=== PATIENT | female | born 1960 | race Caucasian/White ===

== ENCOUNTER 2022-03-28 14:06 | Outpatient (CLI) | payer OTHER, SELFPAY ==
--- NOTE | ~2022-03-28 | US_ITS ---
EXAMINATION: US transvaginal DATE: 03/28/2022 14:59 INDICATION: Evaluate pelvis. Status post left oophorectomy. Comparison:No prior studies for comparison. TECHNIQUE: Multiple endovaginal sonographic images of the pelvis performed. FINDINGS: The uterus measures 4.9 x 1.5 x 4.2 cm. The endometrial complex measures 1 mm. The ovaries are not visualized. There is no free fluid in the pelvis. There are no abnormal masses s een on either side. IMPRESSION: 1. Unremarkable pelvic ultrasound. Reviewed, dictated and finalized at location B.
== END 2022-03-28 14:07 | disposition home or self-care (01) ==
PROVIDERS: PCP Family Medicine; Visit Provider Physician Assistant Medical
DX: N94.89 Other specified conditions associated with female genital organs and menstrual cycle (principal); Z87.42 Personal history of other diseases of the female genital tract
CPT/HCPCS: 76830

== ENCOUNTER → 2022-04-10 13:54 | Outpatient (CLI) | payer OTHER, SELFPAY ==
--- NOTE | ~2022-04-10 | CT_ITS ---
EXAMINATION: CT abdomen pelvis wo con DATE: 04/10/2022 14:26 INDICATION: Right lower quadrant abdominal pain. TECHNIQUE: Computed tomography (CT) of the abdomen and pelvis was performed without intravenous contr ast. Automated exposure control and iterative reconstruction technique were employed. The dose-length product was 484.83 mGy-cm. COMPARISON: None. FINDINGS: The visualized portions of the lung bases demonstrate minimal atelectasis on the left. No p leural effusion. The heart size is normal. No pericardial effusion. The liver, gallbladder, spleen, p ancreas, and adrenal glands are normal. There is a 10.7 cm mass of right kidney measuring soft tissue attenuation with areas of coarse calcification. There is mild right hydronephrosis. There is a 5 mm stone in left kidney. There are no dilated loops of bowel. The appendix is normal. There are no patho logically enlarged lymph nodes. There is no free intraperitoneal fluid. There is severe lower lumbar spondylosis. There is a chronic compression fracture of T11. IMPRESSION: 1. 10.7 cm mass of right kidney, which may be a hemorrhagic cyst or neoplasm. Abdomen MRI without and with contrast is recommended given the patient's history of CT contrast reaction. 2. Mild right hydronephrosis secondary to mass effect from the right kidney mass. 3. Nonobstructing left kidney stone. Reviewed, dictated and finalized at location A. IMPRESSION: 1. 10.7 cm mass of right kidney, which may be a hemorrhagic cyst or neoplasm. A bdomen MRI without and with contrast is recommended given the patient's history of CT contrast reaction. 2. Mild right hydronephrosis secondary to mass effect from the right kidney mas s. 3. Nonobstructing left kidney stone.
== END ==
PROVIDERS: PCP Family Medicine; Visit Provider Nurse Practitioner Family
DX: G89.29 Other chronic pain (principal); R10.31 Right lower quadrant pain; R19.03 Right lower quadrant abdominal swelling, mass and lump; N20.0 Calculus of kidney
CPT/HCPCS: 74176

== ENCOUNTER 2024-02-23 07:49 | Outpatient (CLI) | payer OTHER, SELFPAY ==
--- NOTE | ~2024-02-23 | MR_ITS ---
MRI of the left foot CLINICAL HISTORY: Third metatarsal stress fracture TECHNIQUE: Axial proton-density and proton-density fat-sat images, coronal redundancy fat-sat and T1- weighted images, and sagittal T1-weighted and T2 fat-sat images were performed. FINDINGS: There is mild marrow edema at the midshaft of the third metatarsal, without discrete fractu re line. There may be minimal periosteal thickening in this region. There are chondroid lesions withi n the first metatarsal and first proximal phalanx, suggestive of enchondromas. No other marrow signal abnormality seen. Joint spaces are preserved. No joint effusion identified. Flexor and extensor tendons are intact. Intrinsic musculature of the foot is intact. No intermetatars al bursitis or Chen's neuroma. No soft tissue mass evident. IMPRESSION: Findings consistent with stress response marrow edema of the third metatarsal shaft, without discrete stress fracture line or cortical break. Enchondromas of the first metatarsal and first proximal phalanx. Reviewed, dictated and finalized at location . IMPRESSION: Findings consistent with stress response marrow edema of the third metatarsal s haft, without discrete stress fracture line or cortical break. Enchondromas of the first metatarsal and first proximal phalanx.
== END 2024-02-23 07:50 ==
PROVIDERS: PCP Family Medicine; Visit Provider Podiatrist Foot & Ankle Surgery
DX: S92.309A Fracture of unspecified metatarsal bone(s), unspecified foot, initial encounter for closed fracture (principal); D16.32 Benign neoplasm of short bones of left lower limb
CPT/HCPCS: 73718

== ENCOUNTER 2025-01-11 16:04 | Outpatient (CLI) | payer OTHER, SELFPAY ==
--- NOTE | ~2025-01-11 | XR_ITS ---
EXAM: XR shoulder LT min 2V DATE: 01/11/2025 16:30 HISTORY: M54.2 - Cervicalgia . COMPARISON: None available. FINDINGS: Decreased mineralization. No fracture or dislocation. No lytic or blastic lesion. Mild deg enerative change at the AC joint and glenohumeral joint. No erosion or periosteal change. Soft tissue s within normal limits. IMPRESSION: Osteopenia. Mild left shoulder polyarticular osteoarthritis. Reviewed, dictated and finalized at location K.
--- NOTE | ~2025-01-11 | XR_ITS ---
EXAM: XR cervical spine 4-5V DATE: 01/11/2025 16:30 HISTORY: M54.2 - Cervicalgia . COMPARISON: X-ray and CT cervical spine 04/24/2017. FINDINGS: Craniocervical association and atlantoaxial joint are aligned. Severe degenerative change at the atlantodental interval. No prevertebral soft tissue swelling. 2 mm retrolistheses at C4-5 and C5-6. Vertebral body heights are maintained. Normal disc spaces. Mild disc space narrowing and margin al osteophytosis at C4-5 and C5-6. Mild-moderate multilevel facet and uncovertebral joint hypertrophy . Moderate right neural foraminal narrowing at C4-5. Moderate bilateral neural foraminal narrowing at C5-6. IMPRESSION: Severe degenerative change at the atlantodental interval. Created 1 retrolistheses at C4- 5 and C5-6. Moderate degenerative disease at C4-5 and C5-6. Multilevel facet arthropathy. Moderate ri ght C4-5 and moderate bilateral C5-6 neural foraminal narrowing. Reviewed, dictated and finalized at location K. IMPRESSION: Severe degenerative change at the atlantodental interval. Created 1 retrolistheses at C4-5 and C5-6. Moderate degenerative disease at C4-5 and C5- 6. Multilevel facet arthropathy. Moderate right C4-5 and moderate bilateral C5- 6 neural foraminal narrowing.
== END 2025-01-11 16:05 | disposition home or self-care (01) ==
LOC: MICIMG 16:05
PROVIDERS: PCP Family Medicine; Visit Provider Physician Assistant Medical
DX: M47.892 Other spondylosis, cervical region (principal); M19.012 Primary osteoarthritis, left shoulder; M85.88 Other specified disorders of bone density and structure, other site
CPT/HCPCS: 72050; 73030

== ENCOUNTER 2025-02-21 12:54 | Outpatient (CLI) | payer OTHER, SELFPAY ==
--- NOTE | ~2025-02-21 | MR_ITS ---
EXAMINATION: MR cervical spine wo con DATE: 02/23/2025 11:11 CDT INDICATION: M47.12. Spondylosis with myelopathy. Renal cell carcinoma. Left- sided neck pain which radiates into the left shoulder. No trauma. TECHNIQUE: Magnetic resonance imaging (MRI) of the cervical spine was performed without intravenous contrast. Sequences included sagittal T2-weighted FRFSE-XL, sagittal T2-weighted FS FRFSE-XL, sagittal T1-weighted FSE-XL, and axial T2- weighted 3D FRFSE-XL. COMPARISON: None FINDINGS: Cervical vertebral body heights are within normal limits. Disc desiccation throughout the cervical spine. Predental space is within normal limits. Grade 1 retrolisthesis of C5 on C6. Mild intervertebral disc space narrowing at the C5- C6 level. No abnormal signal within the spinal cord. Cervical medullary junction is within normal limits. Bone marrow signal is within normal limits. At the C3-C4 level, there is a small broad-based disc bulge. Mild narrowing of the spinal canal and mild narrowing of the bilateral neural foramen. At the C4-C5 level, there is a small broad-based disc bulge with degenerative change in the facet joints and uncovertebral joints. Mild narrowing of the spinal canal and mild narrowing of the bilateral neural foramen. At the C5-6 level, there is a small posterior disc osteophyte complex with degenerative change in the facet joints. Mild narrowing of the spinal canal. Moderate narrowing of the bilateral neural foramen. IMPRESSION: 1. Multilevel discogenic and degenerative change in the mid cervical spine most prominent at the C5-C6 level as detailed above. 2. Grade 1 retrolisthesis of C5 and C6. Reviewed, dictated and finalized at location Q.
== END 2025-02-21 12:55 | disposition home or self-care (01) ==
PROVIDERS: PCP Family Medicine; Visit Provider Physician Assistant Medical
DX: M47.12 Other spondylosis with myelopathy, cervical region (principal); M47.22 Other spondylosis with radiculopathy, cervical region; M50.30 Other cervical disc degeneration, unspecified cervical region
CPT/HCPCS: 72141

== ENCOUNTER 2025-03-10 10:41 | Outpatient (CLI) | payer OTHER, SELFPAY ==
--- NOTE | 2025-03-10 11:00 | ECG_ITS ---
Test Date: 2025-03-10 11:07:07 Measurements Intervals [place] Rate: 66 P: 62 SC: 171 QRS: 2 QRSD: 94 T: 46 QT: 394 QTc: 415 Interpretive Statements SINUS RHYTHM POSSIBLE LEFT ATRIAL ENLARGEMENT [-0.1mV P-WAVE IN V1/V2] No previous ECG available for comparison Electronically Signed On 03-10-2025 15:40:56 CDT by Octavio Mensah M.D.
--- OUTSIDE RECORDS SUMMARY | 2025-03-10 11:28 | XMS_ITS | Encounter Summary ---
Author Organization [facility] - [facility] Address [address] [place] [address] Care Team Providers Care Direct Support Staff Member Name Role Phone Rachid Kirby MD Primary Care Provider [phone] Encounter Details Date Type Department Care Team (Late st Contact Info) Description 05/29/2023 Feast [facility] Patient Accounts [address] [place], [place] [id number] [facility] Provider Action Required Social History Tobacco Use Types Packs/Day Years Used Date Smoking Tobacco: Never Smokeless Tobacco: Never Alcohol Use Standard Drinks/Week Comments Not Currently 0 (1 standard drink = 0.6 oz pur e alcohol) Comments No Sex and Gender Information Value Date Recorded Sex Assigned at Not on file Legal Sex Female 7:30 PM CDT Gender Identity Not on file Sexual Orientation Not on file documented as of this encounter Functional Status * RETIRED Are you deaf or do you have serious difficulty hearing Answer Date of Assessment Author Status No 05/04/2022 12:35 AM CDT Acti ve * RETIRED Are you blind or do you have serious difficulty seeing, even when wearing glasses? Answer Date of Assessment Author Status No 05/04/2022 12:35 AM CDT Acti ve * Do you have serious difficulty walking or climbing stairs? Answer Date of Assessment Author Status No 05/04/2022 12:35 AM JANT Cathy Ramirez RN Active * Do you have difficulty dressing or bathing? Answer Date of Assessment Author Status No 05/04/2022 12:35 AM JANT Cathy Ramirez RN Active * Because of a physical, mental, or emotional condition, do you have difficulty doing errands alone such as visiting a doctor's office or shopping? Answer Date of Assessment Author Status No 05/04/2022 12:35 AM Cathy Coleman RN Active documented as of this encounter Mental Status * Because of a physical, mental, or emotional condition, do you have serious difficulty concentrating, remembering, or making decisions? Answer Entry Date Author Status No 05/04/2022 12:35 AM Cathy Coleman RN Active documented in this encounter Plan of Treatment Not on file documented as of this encounter Goals Goal Patient Goal Type Associated Problems Recent Progress Patient-Stated? Author Patient will return to prior living situation and remain independent in ADLs upon discharge from hospital Lifestyle No Aaliyah Cabrera, TIRE FIXER documented as of this encounter Visit Diagnoses Not on filedocumented in this encounter Care Teams Direct Support Staff Member Relationship Specialty Start Date End Date Rachid Kirby MD [address] [place], [place] [id number] PCP - General FAMILY PRACTICE 05/02/22 documented as of this encounter
--- OUTSIDE RECORDS SUMMARY | 2025-03-10 11:28 | XMS_ITS | Encounter Summary ---
Author Organization [employer] Address 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 [place] [id number] PCP - General Family Practice 12/19/16 documented as of this encounter
--- OUTSIDE RECORDS SUMMARY | 2025-03-10 11:28 | XMS_ITS | Clinical Summary ---
Author Organization [facility] Address [facility] [place] [address] Care Team Providers Care Chart Reader Name Role Phone Rachid Kirby MD Primary Care Provider [phone] Allergies Active Allergy Reactions Criticality Noted Date Comments Iodine Hives,Swelling 05/02/2022 Swelling to hands Medications folic acid (FOLVITE) 1 MG tablet Take 1 mg by mouth nightly. 2 Active Multiple Vitamin (MULTI-VITAMIN) tablet Take 1 tablet by mouth nightly. Active ondansetron (ZOFRAN-ODT) 8 MG disintegrating tablet DISSOLVE 1 TABLET ON THE TONGUE EVERY 8 HOURS NEEDED FOR NAUSEA 2 Active PARoxetine CR (PAXIL-CR) 25 MG 24 hr tablet Take 25 mg by mouth nightly. 2 Active rosuvastatin (CRESTOR) 10 MG tablet Take 10 mg by mouth nightly. 2 Active SUMAtriptan (IMITREX) 100 MG tablet Take 100 mg by mouth 2 (two) times daily as needed for Migraine. 2 Active aspirin EC (ECOTRIN) 81 MG tablet Take 81 mg by mouth nightly. Active vitamin D3, cholecalciferol, 5000 UNITS capsule Take 5,000 Units by mouth nightly. Active oxyCODONE-acetamino phen (PERCOCET) 7.5-325 MG tabletIndications:A cute Pain < 7 Day Supply Take 1 tablet by mouth every 4 (four) hours as needed. Indications: Acute Pain < 7 Day Supply 20 tablet 2 Active Active Problems Problem Noted Date Diagnosed Date Kidney stone 05/03/2022 Social History Tobacco Use Types Packs/Day Years Used Date Smoking Tobacco: Never Smokeless Tobacco: Never Alcohol Use Standard Drinks/Week Comments Not Currently 0 (1 standard drink = 0.6 oz pur e alcohol) Comments No Sex and Gender Information Value Date Recorded Sex Assigned at Not on file Legal Sex Female 7:30 PM CDT Gender Identity Not on file Sexual Orientation Not on file Last Filed Vital Signs Vital Sign Reading Time Taken Comments Blood Pressure 139/72 05/06/2022 5:02 AM ARTS THERAPIST Pulse 81 05/06/2022 5:02 AM ARTS THERAPIST Temperature 36.6 C (97.9 F) 05/06/2022 5:02 AM ARTS THERAPIST Respiratory Rate 16 05/06/2022 5:02 AM ARTS THERAPIST Oxygen Saturation 98% 05/06/2022 5:02 AM ARTS THERAPIST Inhaled Oxygen Concentration - - Weight 71.3 kg (157 lb 3 oz) 05/05/2022 4:50 AM ARTS THERAPIST Height 162.6 cm (5' 4) 05/03/2022 9:05 PM CDT Body Mass Index 26.98 05/03/2022 9:05 PM CDT Plan of Treatment Health Maintenance Due Date Last Done Comments Cervical Cancer Screening Pa p Smear (Age 30 to 64) Every 3 Years 1961 Colorectal Cancer Screening Colonoscopy (10 Years) 1961 Annual Physical 1964 Hepatitis C 08/31/1979 DTaP, Tdap and Td Vaccines ( 1 - Tdap) 1980 Cervical Cancer Screening Pa p with HPV Testing (Age 30 to 64) Every 5 Years 08/31/1991 Cervical Cancer Screening [facility] HPV 08/31/1991 Mammogram Screening 2001 Pneumococcal Vaccine: 50+ Years (1 of 1 - PCV) 08/31/2011 Zoster Vaccines (1 of 2) 08/31/2011 COVID-19 Vaccine (3 - 2024-2 6 season) 2025 03/11/2021, 02/18/2021 RSV Immunization or 60+ Years (1 - 1-dose 75+ series) 2036 Meningococcal B Vaccine Aged Out No l onger eligible based on patient's age to complete this topic Meningococcal Vaccine Aged Out No yvonne yue eligible based on patient's age to complete this topic RSV Immunizations Under 20 Months Aged Out No longer eligible b ased on patient's age to complete this topic Goals Goal Patient Goal Type Associated Problems Recent Progress Patient-Stated? Author Patient will return to prior living situation and remain independent in ADLs upon discharge from hospital Lifestyle No Aaliyah Cabrera, [facility] Insurance [facility] Advance Directives * Full Code (Latest Code Status on File) Date Activated Date Inactivated Comments 05/04/2022 12:49 AM 05/06/2022 2:40 PM Care Teams Chart Reader Relationship Specialty Start Date End Date Rachid Kirby MD [address] [place] [address] PCP - General FAMILY PRACTICE 05/02/22
--- OUTSIDE RECORDS SUMMARY | 2025-03-10 11:28 | XMS_ITS | Encounter Summary ---
Author Organization [employer] Address 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 [address] PCP - General Family Practice 12/19/16 documented as of this encounter
--- OUTSIDE RECORDS SUMMARY | 2025-03-10 11:28 | XMS_ITS | Patient Health Record ---
Author Organization [facility] Address [address] [place], [place] [id number] Care Team Providers Care Exchange Administrator Name Role Phone BlaineESTER reeves Unavailable Reason For Referral No Information Plan Of Treatment No Information Insurance Providers Payer Name Payer Address Payer Phone Subscriber Number Group Number Insured Name Patient Relationship to Insured Coverage Start Date Coverage End Date [facility] [address] [address] [place] [id number] TAMERA HERR Spouse - patient is the spouse of the insured
--- OUTSIDE RECORDS SUMMARY | 2025-03-10 11:28 | XMS_ITS | Encounter Summary ---
Author Organization [email or web address] Address 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 [phone] PCP - General Family Practice 12/19/16 documented as of this encounter
--- OUTSIDE RECORDS SUMMARY | 2025-03-10 11:28 | XMS_ITS | Clinical Summary ---
Author Organization [facility] Address [address] [place] [address] Care Team Providers Care Windrower Operator Name Role Phone Yesi Khan MD Primary Care Provider [phone] Source Comments [facility],non-owned Affiliates and Associated Physician Practices is amultiple site organization consisting of ambulatory clinics and hospital sitesin [place], [place], [place] and [place]. This disclosure is being madepursuant to the Care Everywhere program and may not contain all information available regarding this patient. Last updated 18.[facility] Allergies Active Allergy Reactions Criticality Noted Date Comments Codeine Nausea 10/23/2010 Contrast-Iodinated Agents For Ct/Other Rash 10/23/2010 Family History Medical History Relation Name Comments Alcohol abuse Brother Alcohol abuse Father Anxiety Disorder Mother Arthritis - Rheumatoid Mother Glaucoma Mother Hearing Loss Mother Osteoporosis Mother Anxiety Disorder Sister Relation Name Status Comments Brother Father Mother Sister Social History Tobacco Use Types Packs/Day Years Used Date Smoking Tobacco: Former Cigarettes Q uit: 10/23/1990 Smokeless Tobacco: Never Alcohol Use Standard Drinks/Week Comments No 0 (1 standard drink = 0.6 oz pur e alcohol) Comments Unknown Sex and Gender Information Value Date Recorded Sex Assigned at Not on file 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 Gender Identity Not on file Sexual Orientation Not on file Plan of Treatment Health Maintenance Due Date Last Done Comments COLOGUARD (AGES 45-75) - COL ON CA SCREENING 1961 COLON MONITORING 1961 COLONOSCOPY - COLON CA SCREENING 1961 CT COLONOGRAPHY - COLON CA SCREENING 1961 Colorectal Cancer Screening 1961 FIT - COLON CA SCREENING 1961 FLEX SIG - COLON CA SCREENING 1961 LIPID TESTING 1961 MAMMOGRAM 1961 HIV SCREENING 1976 HEPATITIS C SCREENING 08/26/1979 DTAP/TDAP/TD VACCINES (1 - Tdap) 1980 PNEUMOCOCCAL VACCINE 50+ (1 of 1 - PCV) 08/31/2011 ZOSTER VACCINE (1 of 2) 08/31/2011 DEPRESSION SCREENING 06/29/2024 COVID-19 VACCINE (1 - 2023-2 5 season) 2025 INFLUENZA VACCINE (#1) 2025 Respiratory Syncytial Virus (RSV) Vaccine Pt: or over 60 yrs (1 - 1-dose 75+ series) 2036 HEPATITIS B VACCINE Aged Out No longe r eligible based on patient's age to complete this topic HIB VACCINE Aged Out No longer eligi ble based on patient's age to complete this topic HPV VACCINE Aged Out No longer eligi ble based on patient's age to complete this topic MENINGOCOCCAL (Group B) VACC INE SHARED DECISION-MAKING Aged Out No longer eligibl e based on patient's age to complete this topic MENINGOCOCCAL GROUPS A/C/Y/W VACCINE Aged Out No longer eligible b ased on patient's age to complete this topic Insurance Care Teams Windrower Operator Relationship Specialty Start Date End Date Yesi Khan MD [address] [place] [id number] PCP - General 10/15/10
--- OUTSIDE RECORDS SUMMARY | 2025-03-10 11:28 | XMS_ITS | Clinical Summary ---
Author Organization [facility] Address [address] [place] [address] Care Team Providers Care Client Service Associate Name Role Phone Rachid Kirby MD Primary Care Provider [phone] Hermilo Kevin MD Unavailable [phone] Allergies Active Allergy Reactions Criticality Noted Date Comments Codeine Nausea only Low Iodinated Contrast Media Swelling,Rash Medium Medications folic acid (FOLVITE) 1 mg tablet Take 1 tablet (1,000 mcg total) by mouth daily On hold for surgery 11/02/2021 Active rosuvastatin (CRESTOR) 10 mg tablet Take 1 tablet (10 mg total) by mouth nightly 10/24/2021 Active SUMAtriptan (IMITREX) 100 mg tablet Take 1 tablet (100 mg total) by mouth once as needed 08/17/2021 Active PARoxetine CR (PAXIL-CR) 25 mg 24 hr tablet Take 1 tablet (25 mg total) by mouth nightly 11/02/2021 Active multivitamin tablet Take 1 tablet by mouth daily On hold for surgery Active aspirin 81 mg enteric coated tablet Take 1 tablet (81 mg total) by mouth daily On hold for surgery Active vit D3-vit N-getbxtgmc-cty s [phone] irwq-yev-kg-mg tablet Take by mouth Active Active Problems Problem Noted Date Diagnosed Date Renal mass 05/07/2022 Overview (05/07/2022): Added automatically from request for surgery [id number] Chondromalacia, patella, left 12/03/2021 Chondromalacia, patella, right 12/03/2021 Asymmetrical hearing loss 08/07/2013 Subjective tinnitus 08/07/2013 Impacted cerumen 07/22/2013 Lumbago 01/20/2013 Closed fracture of sixth cervical vertebra 03/30 Surgical History Surgery Date Site/Laterality Comments SINUS SURGERY SECTION 06/29/1999 - 06/28/2000 OOPHERECTOMY 06/29/1979 - 06/28/1980 Left SKIN SURGERY 06/29/1981 - 06/28/1982 overgrowth of skin tissue in neck removed Medical History Medical History Date Comments Hypercholesteremia Kidney stone Migraines Deep vein thrombosis (HCC) Allergic rhinitis Anxiety Family History Medical History Relation Name Comments Heart disease Father Arthritis Mother Relation Name Status Comments Father Mother Social History Tobacco Use Types Packs/Day Years Used Date Smoking Tobacco: Former Tobacco Cessation:Counseling Given: Not Answered AUDIT-C Answer Date Recorded Q1: How often do you have a drink containing alcohol? Never 05/19/2022 Q2: How many drinks containi ng alcohol do you have on a typical day when you are drinking? Patient does not drink Q3: How often do you have si x or more drinks on one occasion? 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 Not on file Not on file Not on file Obstetrics History Last Filed Vital Signs Vital Sign Reading Time Taken Comments Blood Pressure 166/82 05/23/2022 8:02 AM AIRCRAFT MANAGER Pulse 82 05/23/2022 8:02 AM AIRCRAFT MANAGER Temperature 36.6 C (97.9 F) 05/23/2022 8:02 AM AIRCRAFT MANAGER Respiratory Rate 16 05/23/2022 8:02 AM AIRCRAFT MANAGER Oxygen Saturation 98% 05/23/2022 8:02 AM AIRCRAFT MANAGER Inhaled Oxygen Concentration - - Weight 65.3 kg (144 lb) 04/15/2024 8:35 AM CDT Height 162.6 cm (5' 4) 04/15/2024 8:35 AM CDT Body Mass Index 24.72 04/15/2024 8:35 AM CDT Plan of Treatment Health Maintenance Due Date Last Done Comments Breast Cancer Screening-Mammogram 1961 Cervical Cancer Screening 1961 Colon Cancer Screening-Colonoscopy 1961 Depression Screening 1961 Hepatitis C Screening 1961 DTaP/Tdap/Td Vaccine (1 - Tdap) 1972 Hepatitis B Screening 08/31/1979 Regular Well Visit/Exam 18-64 08/31/1979 Zoster Vaccine (1 of 2) 08/31/2011 Covid-19 Vaccine (3 - 2024-2 6 season) 2025 03/11/2021, 02/18/2021 Influenza Vaccine (#1) 2025 , 07/06/2019 Pneumococcal vaccine <65 Aged Out No longer eligible based on patient's age to complete this topic Insurance [facility] Address: [facility] [address] [place] [address] [facility] Address: [facility] [address] [place] [address] Advance Directives For more information, please contact: [phone] * Full Code (Latest Code Status on File) Date Activated Date Inactivated Comments 05/19/2022 3:36 PM 05/23/2022 3:01 PM Care Teams Client Service Associate Relationship Specialty Start Date End Date Rachid Kirby MD PCP - General Family Medicine 09/04/21 [place] [address] [place] [address] Consulting Physician Urology 05/23/22
--- OUTSIDE RECORDS SUMMARY | 2025-03-10 11:28 | XMS_ITS | Encounter Summary ---
Author Organization [employer] Address [address] [place] [address] Care Team Providers Care Retail Merchandiser Name Role Phone Rachid Kirby MD Primary Care Provider [phone] Encounter Details Date Type Department Care Team (Latest Contact Info) Description 03/13/2000 Outpatient Historical [facility] Diane Murphy Jr., MD NO ADDRESS ON FILE Unspecified high-risk (Primary Dx) Social History Tobacco Use Types Packs/Day Years Used Date Smoking Tobacco: Never Assessed Comments Unknown Sex and Gender Information Value Date Recorded Sex Assigned at Not on file Legal Sex Female 3:04 AM HUMANE AGENT Gender Identity Not on file Sexual Orientation Not on file documented as of this encounter Plan of Treatment Not on file documented as of this encounter Visit Diagnoses Diagnosis Unspecified high-risk - Primary documented in this encounter Care Teams Retail Merchandiser Relationship Specialty Start Date End Date Rachid Kirby MD [address] [place] [phone] PCP - General Family Practice 12/19/16 documented as of this encounter
--- OUTSIDE RECORDS SUMMARY | 2025-03-10 11:28 | XMS_ITS | Encounter Summary ---
Author Organization [employer] Address [address] [place] [address] Care Team Providers Care Print Developer Automatic Name Role Phone Rachid Kirby MD Primary Care Provider [phone] Encounter Details Date Type Department Care Team (Latest Contact Info) Description 05/08/2000 Inpatient Historical [facility] PATIENT IN A BED Mitchel Naranjo MD [address] [facility] [place] [address] Premature rupture of membranes in , delivered (Primary Dx) Social History Tobacco Use Types Packs/Day Years Used Date Smoking Tobacco: Never Assessed Comments Unknown Sex and Gender Information Value Date Recorded Sex Assigned at Not on file Legal Sex Female 3:04 AM GLASS DRILLER Gender Identity Not on file Sexual Orientation Not on file documented as of this encounter Plan of Treatment Not on file documented as of this encounter Visit Diagnoses Diagnosis Premature rupture of membranes in , delivered- Primary documented in this encounter Care Teams Print Developer Automatic Relationship Specialty Start Date End Date Rachid Kirby MD [address] [place] [address] PCP - General Family Practice 12/19/16 documented as of this encounter
--- OUTSIDE RECORDS SUMMARY | 2025-03-10 11:28 | XMS_ITS | Encounter Summary ---
Author Organization [employer] Address [address] [place] [address] Care Team Providers Care Early Childhood Worker Name Role Phone Rachid Kirby MD Primary Care Provider [phone] Encounter Details Date Type Department Care Team (Latest Contact Info) Description 03/14/2000 Outpatient Historical [facility] Diane Murphy Jr., MD NO ADDRESS ON FILE Unspecified high-risk (Primary Dx) Social History Tobacco Use Types Packs/Day Years Used Date Smoking Tobacco: Never Assessed Comments Unknown Sex and Gender Information Value Date Recorded Sex Assigned at Not on file Legal Sex Female 3:04 AM ACQUISITION ANALYST Gender Identity Not on file Sexual Orientation Not on file documented as of this encounter Plan of Treatment Not on file documented as of this encounter Visit Diagnoses Diagnosis Unspecified high-risk - Primary documented in this encounter Care Teams Early Childhood Worker Relationship Specialty Start Date End Date Rachid Kiryb MD [address] [place] [phone] PCP - General Family Practice 12/19/16 documented as of this encounter
--- OUTSIDE RECORDS SUMMARY | 2025-03-10 11:28 | XMS_ITS | Clinical Summary ---
Author Organization [facility] Address [address] [place] [address] Phone Care Team Providers Care Prekindergarten Teacher Name Role Phone Rachid Kirby MD Primary Care Provider [phone] Allergies Active Allergy Reactions Criticality Noted Date Comments Iodinated Contrast Media Hives,Swelling High 017 Medications escitalopram oxalate (LEXAPRO) 10 mg tablet Take 10 mg by mouth daily. Active folic acid (FOLVITE) 1 mg tablet Take 1 mg by mouth daily. Active multivitamin (DAILY-MATT) tablet Take 1 Tablet by mouth daily. Active rosuvastatin (CRESTOR) 10 mg tablet Take 10 mg by mouth daily at bedtime. Active aspirin (ECOTRIN EC) 81 mg Tablet, Delayed Release (E.C.) Take 81 mg by mouth daily. Active nitrofurantoin macrocrystal (MACRODANTIN) 50 mg capsule TK 1 C PO AFTER SEX 2 7 Active SUMAtriptan (IMITREX) 100 mg tablet TK 1 T PO AT THE ONSET OF MIGRAINE. MAY REPEAT AFTER 2 H IF HEADACHE RETURNS. NOT TO EXCEED 2 TS IN 24 H 0 7 Active Social History Tobacco Use Types Packs/Day Years Used Date Smoking Tobacco: Never Alcohol Use Standard Drinks/Week Comments No 0 (1 standard drink = 0.6 oz pur e alcohol) Comments Unknown Sex and Gender Information Value Date Recorded Sex Assigned at Not on file Legal Sex Female 3:04 AM PET CAREGIVER Gender Identity Not on file Sexual Orientation Not on file Last Filed Vital Signs Vital Sign Reading Time Taken Comments Blood Pressure 137/82 12/19/2016 1:15 PM CDT Pulse 69 12/19/2016 1:15 PM CDT Temperature 36.1 C (96.9 F) 12/19/2016 1:05 PM CDT Respiratory Rate 16 12/19/2016 1:15 PM CDT Oxygen Saturation 97% 12/19/2016 1:15 PM CDT Inhaled Oxygen Concentration - - Weight 71.7 kg (158 lb) 12/19/2016 11:28 AM CDT Height 162.6 cm (5' 4) 12/19/2016 11:28 AM CDT Body Mass Index 27.12 12/19/2016 11:28 AM CDT Plan of Treatment Health Maintenance Due Date Last Done Comments DTAP/TDAP/TD VACCINES (1 - Tdap) 1980 HPV/Cotest (21-29) 1982 CERVICAL CANCER SCREENING 08/31/1991 HPV/Cotest (30-65) 08/31/1991 PAP SMEAR 08/31/1991 BREAST CANCER SCREENING 2001 FIT-DNA Q 3 years 2006 FIT/FOBT Q 1 year 2006 Flex Sig/CT Colonography Q 5 years 2006 ZOSTER VACCINE (1 of 2) 08/31/2011 INFLUENZA VACCINE (#1) 2025 COLORECTAL SCREENING 12/19/2026 12/19/2016, 03/05/20 07 Colorectal Cancer Screening 12/19/2026 RSV VACCINE (60+ or ) (1 - 1-dose 75+ series) 2036 Procedures Procedure Name Priority Date/Time Associated Diagnosis Comments ENDOSCOPY, COLON, SCREENING Routine 03/05/2007 from Last 3 Months or Most Recently Relevant to Health Maintenance Results * ENDOSCOPY, COLON, SCREENING (03/05/2007) Tan Ramirez MD GI PROCEDURE ORDERABLES Edited Result - Final [facility] from Last 3 Months or Most Recently Relevant to Health Maintenance [place] [address] OPTIONS PPO [id number] [facility] Yarelis Menjivar [place] [id number] Advance Directives For more information, please contact: [phone] * Full Code (Latest Code Status on File) Date Activated Date Inactivated Comments 12/19/2016 11:30 AM 12/19/2016 3:45 PM Care Teams Prekindergarten Teacher Relationship Specialty Start Date End Date Rachid Kirby MD [address] [place] [address] PCP - General Family Practice 12/19/16
--- OUTSIDE RECORDS SUMMARY | 2025-03-10 11:28 | XMS_ITS | Encounter Summary ---
Author Organization [facility] Address [address] [place], [place] [address] [address] Care Team Providers Care Metal Grader Name Role Phone Yesi Khan MD Primary Care Provider Encounter Details Date Type Department Care Team (Late st Contact Info) Description 04/18/2021 Lab Requisition [facility] [address] [facility] [place] [id number] Hipolito Coleman MD [address] [place] [address] Social History Tobacco Use Types Packs/Day Years Used Date Smoking Tobacco: Former Cigarettes Q uit: 10/23/1990 Smokeless Tobacco: Never Alcohol Use Standard Drinks/Week Comments No 0 (1 standard drink = 0.6 oz pur e alcohol) Comments Unknown Sex and Gender Information Value Date Recorded Sex Assigned at Not on file Legal Sex Female 7:19 PM RETAIL EVENT COORDINATOR Gender Identity Not on file Sexual Orientation Not on file documented as of this encounter Plan of Treatment Not on file documented as of this encounter Procedures Procedure Name Priority Date/Time Associated Diagnosis Comments DERMATOPATHOLOGY Routine 04/16/2021 12:0 0 AM CDT documented in this encounter Results * DERMATOPATHOLOGY (04/16/2021 12:00 AM CDT) Case Report Dermatopathology Report Case: [id number] Authorizing Provider: Hipolito Coleman MD Collected: 04/16/2021 12:00 AM Ordering Location: [facility] Lab Received: 04/18/2021 07:53 AM Pathologist: Fabi Krause MD Specimen: Skin, lower back 1:46 PM CDT DERMATOPATHOLOGY LABORATORY Final Diagnosis Specimen A. SKIN, lower back: INTRADERMAL MELANOCYTIC NEVUS (D22.5) 1:46 PM CDT DERMATOPATHOLOGY LABORATORY at 1346 CDT Clinical History MM vs Nevus vs other. Path# [id number] 1:46 PM CDT DERMATOPATHOLOGY LABORATORY Gross Description Specimen A: Received is one formalin filled container labeled with the patient's name and designated lower back. The specimen consists of a shave biopsy measuring [id number]. Jar 0. 1:46 PM CDT DERMATOPATHOLOGY LABORATORY Microscopic Description Specimen A. SKIN, lower back: There are nests of cytologically bland melanocytes within the dermis that mature with depth. 1:46 PM CDT DERMATOPATHOLOGY LABORATORY Disclaimer An external and internal positive and negative controls are appropriate for the histochemical, immunohistochemical and immunofluorescence stain(s) in this case (if any), except where stated explicitly. The performance characteristics of the stain(s) cited in this report were developed and its performance characteristic determined by the Dermatopathology Laboratory at [facility], directed by Dr. Rebeca Dickinson. These tests need not be, and therefore are not, approved by the [place] Food and Drug Administration. The tests are used for clinical purposes. Billing Codes Specimen Charges Stain Charges 89370 1 1:46 PM CDT DERMATOPATHOLOGY LABORATORY Embedded Images 1:46 PM CDT DERMATOPATHOLOGY LABORATORY Pathology/Cytolog y TISSUE SPECIMEN FROM SKIN / Unknown 04/16/2021 04/18/2021 7:53 AM CDT us Hipolito Coleman MD LAB - PATHOLOGY/CYTOLOGY ORDER IRON Final Result DERMATOPATHOLOGY LABORATORY [facility] - Department of Dermatology [address] [phone] documented in this encounter Visit Diagnoses Not on filedocumented in this encounter Care Teams Metal Grader Relationship Specialty Start Date End Date Yesi Khan MD [address] [place] [address] PCP - General 10/15/10 documented as of this encounter
--- OUTSIDE RECORDS SUMMARY | 2025-03-10 11:28 | XMS_ITS | Encounter Summary ---
Author Organization [employer] Address [address] [place] [address] Care Team Providers Care Culinary Specialist Name Role Phone Rachid Kirby MD Primary Care Provider [phone] Encounter Details Date Type Department Care Team (Latest Contact Info) Description 04/24/2000 Outpatient Historical [facility] Mitchel Naranjo MD [address] [place] [address] Unspecified high-risk (Primary Dx) Social History Tobacco Use Types Packs/Day Years Used Date Smoking Tobacco: Never Assessed Comments Unknown Sex and Gender Information Value Date Recorded Sex Assigned at Not on file Legal Sex Female 3:04 AM SURGICAL MANAGER Gender Identity Not on file Sexual Orientation Not on file documented as of this encounter Plan of Treatment Not on file documented as of this encounter Visit Diagnoses Diagnosis Unspecified high-risk - Primary documented in this encounter Care Teams Culinary Specialist Relationship Specialty Start Date End Date Rachid Kirby MD [address] [place] [address] PCP - General Family Practice 12/19/16 documented as of this encounter
--- OUTSIDE RECORDS SUMMARY | 2025-03-10 11:28 | XMS_ITS | Encounter Summary ---
Author Organization [employer] Address [address] [place] [address] Care Team Providers Care Forensic Psychologist Name Role Phone Rachid Kirby MD Primary Care Provider [phone] Encounter Details Date Type Department Care Team (Latest Contact Info) Description 04/26/1998 Inpatient Historical HIS PATIENT IN A BED Gomez Quick MD [address] [place] [address] Diane Murphy Jr., MD NO ADDRESS ON FILE Missed (Primary Dx) Social History Tobacco Use Types Packs/Day Years Used Date Smoking Tobacco: Never Assessed Comments Unknown Sex and Gender Information Value Date Recorded Sex Assigned at Not on file Legal Sex Female 3:04 AM MULT AU MATIC OPERATOR Gender Identity Not on file Sexual Orientation Not on file documented as of this encounter Plan of Treatment Not on file documented as of this encounter Visit Diagnoses Diagnosis Missed - Primary documented in this encounter Care Teams Forensic Psychologist Relationship Specialty Start Date End Date Rachid Kirby MD [address] [place] [address] PCP - General Family Practice 12/19/16 documented as of this encounter
--- OUTSIDE RECORDS SUMMARY | 2025-03-10 11:28 | XMS_ITS | Encounter Summary ---
Author Organization [email or web address] Address [address] [place] [address] Care Team Providers Care Senior Benefits Manager Name Role Phone Rachid Kirby MD Primary Care Provider [phone] Encounter Details Date Type Department Care Team (Latest Contact Info) Description 11/22/1999 Outpatient Historical [facility] Diane Murphy Jr., MD NO ADDRESS ON FILE Unspecified high-risk (Primary Dx) Social History Tobacco Use Types Packs/Day Years Used Date Smoking Tobacco: Never Assessed Comments Unknown Sex and Gender Information Value Date Recorded Sex Assigned at Not on file Legal Sex Female 3:04 AM HEAT AND VENT AIRCRAFT MECHANIC Gender Identity Not on file Sexual Orientation Not on file documented as of this encounter Plan of Treatment Not on file documented as of this encounter Visit Diagnoses Diagnosis Unspecified high-risk - Primary documented in this encounter Care Teams Senior Benefits Manager Relationship Specialty Start Date End Date Rachid Kirby MD [address] [place] [phone] PCP - General Family Practice 12/19/16 documented as of this encounter
[2025-03-10 12:32] LABS: Anion Gap 9 mmol/L (4-12); Blood Urea Nitrogen 19 mg/dL (7-17); Calcium 9.1 mg/dL (8.4-10.2); Carbon Dioxide 30 mmol/L (22-30); Chloride 102 mmol/L (98-107); Estimated Glomerular Filt Rate 47; Glucose 97 mg/dL (65-110); Potassium 4.2 mmol/L (3.4-5.0); Sodium 141 mmol/L (137-145)
== END 2025-03-10 10:42 | disposition home or self-care (01) ==
PROVIDERS: PCP Family Medicine; Visit Provider Anesthesiology
DX: E78.5 Hyperlipidemia, unspecified (principal); Z87.891 Personal history of nicotine dependence; Z01.818 Encounter for other preprocedural examination; Z90.5 Acquired absence of kidney
CPT/HCPCS: 36415; 80048; 93005

== ENCOUNTER 2025-03-17 05:57 | Day surgery (SDC) | payer OTHER, SELFPAY ==
[2025-03-09 08:12] VITALS: BMI 27.2
[2025-03-17] VITALS (9 sets, daily range): BP systolic 152–173; BP diastolic 86–98; PULSE 73–102; RESP 14–18; TEMP 36.4–36.8; O2SAT 93–100; BMI 26.9
--- NOTE | ~2025-03-17 | XR_ITS ---
XR surgery orthopedic Indication:arthrodesis first metatarsophalangeal joint TECHNIQUE: Fluoroscopy used during arthrodesis first metatarsophalangeal joint performed by [Oretga Gloria Jr., DPFarhad] on 03/17/2025. 15 seconds of fluoroscopy with 2 fluoroscopic images captured. FINDINGS: Correlate with procedure note. IMPRESSION: Fluoroscopy used during arthrodesis first metatarsophalangeal joint. Reviewed, dictated and finalized at location O. IMPRESSION: Fluoroscopy used during arthrodesis first metatarsophalangeal joint .
--- OUTSIDE RECORDS SUMMARY | 2025-03-17 06:12 | XMS_ITS | Encounter Summary ---
Author Organization [employer] Address [address] [place] [address] Care Team Providers Care Nurse Receptionist Name Role Phone Rachid Kirby MD Primary Care Provider [phone] Encounter Details Date Type Department Care Team (Latest Contact Info) Description 03/14/2000 Outpatient Historical [facility] B[facility] Diane Murphy Jr., MD NO ADDRESS ON FILE Unspecified high-risk (Primary Dx) Social History Tobacco Use Types Packs/Day Years Used Date Smoking Tobacco: Never Assessed Comments Unknown Sex and Gender Information Value Date Recorded Sex Assigned at Not on file Legal Sex Female 3:04 AM EDUCATION MANAGER Gender Identity Not on file Sexual Orientation Not on file documented as of this encounter Plan of Treatment Not on file documented as of this encounter Visit Diagnoses Diagnosis Unspecified high-risk - Primary documented in this encounter Care Teams Nurse Receptionist Relationship Specialty Start Date End Date Rachid Kirby MD [address] [place] [phone] PCP - General Family Practice 12/19/16 documented as of this encounter
--- OUTSIDE RECORDS SUMMARY | 2025-03-17 06:12 | XMS_ITS | Clinical Summary ---
Author Organization [facility] Address [address] [place] [address] Care Team Providers Care Cras Name Role Phone Yesi Khan MD Primary Care Provider [phone] Source Comments [facility],non-owned Affiliates and Associated Physician Practices is amultiple site organization consisting of ambulatory clinics and hospital sitesin [place], [place], [place] and [place]. This disclosure is being madepursuant to the Care Everywhere program and may not contain all information available regarding this patient. Last updated 18.[facility] Allergies Active Allergy Reactions Criticality Noted Date [...] on file Legal Sex Female 7:19 PM SUPERVISOR REACTOR FUELING Gender Identity Not on file Sexual Orientation [...] patient's age to complete [place] [address] Care Teams Cras Relationship Specialty Start Date End Date Yesi Khan MD [address] [place] [address] PCP - General 10/15/10
--- OUTSIDE RECORDS SUMMARY | 2025-03-17 06:12 | XMS_ITS | Encounter Summary ---
Author Organization [employer] Address [address] [place] [address] Care Team Providers Care Tool Grinder Operator Name Role Phone Rachid Kirby MD Primary Care Provider [phone] Encounter Details Date Type Department Care Team (Latest Contact Info) Description 12/24/1999 Outpatient Historical [facility] Diane Murphy Jr., MD NO ADDRESS ON FILE Unspecified high-risk (Primary Dx) Social History Tobacco Use Types Packs/Day Years Used Date Smoking Tobacco: Never Assessed Comments Unknown Sex and Gender Information Value Date Recorded Sex Assigned at Not on file Legal Sex Female 3:04 AM CAFETERIA AIDE Gender Identity Not on file Sexual Orientation Not on file documented as of this encounter Plan of Treatment Not on file documented as of this encounter Visit Diagnoses Diagnosis Unspecified high-risk - Primary documented in this encounter Care Teams Tool Grinder Operator Relationship Specialty Start Date End Date Rachid Kirby MD [address] [place] [phone] PCP - General Family Practice 12/19/16 documented as of this encounter
--- OUTSIDE RECORDS SUMMARY | 2025-03-17 06:12 | XMS_ITS | Clinical Summary ---
Author Organization [facility] Address [address] [place] [address] Care Team Providers Care Trackmobile Operator Name Role Phone Rachid Kirby MD Primary Care Provider [phone] Hermilo Kevin MD Unavailable [phone] Allergies Active Allergy Reactions Criticality Noted [...] On hold for surgery Active vit D3-vit V-ahdsupase-ksk s [id number] dsnb-nfq-ap-mg tablet Take by mouth Active Active Problems Problem Noted Date Diagnosed Date Renal mass 05/07/2022 Overview (05/07/2022): Added automatically from request for surgery [id number] Chondromalacia, patella, left 12/03/2021 Chondromalacia, patella, right [...] on file Legal Sex Female 1:00 AM FLOOR CLEANER Gender Identity Not on file Sexual Orientation Not on file 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 Not on file Not on file Not on file Obstetrics History Last Filed Vital Signs Vital Sign Reading Time Taken Comments Blood Pressure 166/82 05/23/2022 8:02 AM FLOOR CLEANER Pulse 82 05/23/2022 8:02 AM FLOOR CLEANER Temperature 36.6 C (97.9 F) 05/23/2022 8:02 AM FLOOR CLEANER Respiratory Rate 16 05/23/2022 8:02 AM FLOOR CLEANER Oxygen Saturation 98% 05/23/2022 8:02 AM FLOOR CLEANER Inhaled Oxygen Concentration - - Weight 65.3 [...] patient's age to complete this topic Insurance [facility] HMO/PPO Address: [facility] [address] [place] [address] [facility] HMO/PPO Address: [facility] [address] [place] [address] Advance Directives For more information, please contact: [phone] * Full Code (Latest Code Status on File) Date Activated Date Inactivated Comments 05/19/2022 3:36 PM 05/23/2022 3:01 PM Care Teams Trackmobile Operator Relationship Specialty Start Date End Date Rachid Kirby MD PCP - General Family Medicine 09/04/21 [place] [id number] [place] [address] Consulting Physician Urology 05/23/22
--- OUTSIDE RECORDS SUMMARY | 2025-03-17 06:12 | XMS_ITS | Encounter Summary ---
Author Organization [facility] Address [address] [place] [address] Care Team Providers Care Geometry Tutor Name Role Phone Rachid Kirby MD Primary Care Provider [phone] Encounter Details Date Type Department Care Team (Latest Contact Info) Description 05/08/2000 Inpatient Historical HIS PATIENT IN A BED Mitchel Naranjo MD [address] [facility] [place] [address] Premature rupture of membranes in , delivered (Primary Dx) Social History Tobacco Use Types Packs/Day Years Used Date Smoking Tobacco: Never Assessed Comments Unknown Sex and Gender Information Value Date Recorded Sex Assigned at Not on file Legal Sex Female 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 [address] PCP - General Family Practice 12/19/16 documented as of this encounter
--- OUTSIDE RECORDS SUMMARY | 2025-03-17 06:12 | XMS_ITS | Clinical Summary ---
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
--- OUTSIDE RECORDS SUMMARY | 2025-03-17 06:12 | XMS_ITS | Clinical Summary ---
Author Organization [facility] Address [facility] [place] [address] Care Team Providers Care Cross Cut Sawyer Name Role Phone Rachid Kirby MD Primary Care Provider [phone] Allergies Active Allergy Reactions Criticality Noted Date [...] Comments Blood Pressure 139/72 05/06/2022 5:02 AM DIGITAL PRODUCTION ARTIST Pulse 81 05/06/2022 5:02 AM DIGITAL PRODUCTION ARTIST Temperature 36.6 C (97.9 F) 05/06/2022 5:02 AM DIGITAL PRODUCTION ARTIST Respiratory Rate 16 05/06/2022 5:02 AM DIGITAL PRODUCTION ARTIST Oxygen Saturation 98% 05/06/2022 5:02 AM DIGITAL PRODUCTION ARTIST Inhaled Oxygen Concentration - - Weight 71.3 kg (157 lb 3 oz) 05/05/2022 4:50 AM DIGITAL PRODUCTION ARTIST Height 162.6 cm (5' 4) 05/03/2022 9:05 [...] Every 5 Years 08/31/1991 Cervical Cancer Screening [facility] HPV 08/31/1991 Mammogram Screening 2001 Pneumococcal Vaccine: [...] discharge from hospital Lifestyle No Aaliyah Cabrera, [facility] Insurance [facility] Advance Directives * Full Code (Latest Code Status on File) Date Activated Date Inactivated Comments 05/04/2022 12:49 AM 05/06/2022 2:40 PM Care Teams Cross Cut Sawyer Relationship Specialty Start Date End Date Rachid Kirby MD [address] [address] PCP - General FAMILY PRACTICE 05/02/22
--- OUTSIDE RECORDS SUMMARY | 2025-03-17 06:12 | XMS_ITS | Encounter Summary ---
Author Organization [facility] Address 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 [phone] PCP - General Family Practice 12/19/16 documented as of this encounter
--- OUTSIDE RECORDS SUMMARY | 2025-03-17 06:12 | XMS_ITS | Encounter Summary ---
Author Organization [employer] Address 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 [address] PCP - General Family Practice 12/19/16 documented as of this encounter
--- OUTSIDE RECORDS SUMMARY | 2025-03-17 06:12 | XMS_ITS | Encounter Summary ---
Author Organization [facility] Address 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 [address] PCP - General Family Practice 12/19/16 documented as of this encounter
--- OUTSIDE RECORDS SUMMARY | 2025-03-17 06:12 | XMS_ITS | Encounter Summary ---
Author Organization [facility] Address 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 [place] [address] PCP - General Family Practice 12/19/16 documented as of this encounter
--- OUTSIDE RECORDS SUMMARY | 2025-03-17 06:12 | XMS_ITS | Encounter Summary ---
Author Organization [facility] Address [address] [place], [place] [address] [address] Care Team Providers Care Paralegal Secretary Name Role Phone Yesi Khan MD Primary Care Provider [phone] Encounter Details Date Type Department Care Team (Late st Contact Info) Description 04/18/2021 Lab Requisition [facility] DermPath Lab [address] [facility] [facility] [place] [id number] Hipolito Coleman MD [address] [facility] [place] [address] Social History Tobacco Use Types Packs/Day Years Used Date Smoking Tobacco: Former Cigarettes Q uit: 10/23/1990 Smokeless Tobacco: Never Alcohol Use Standard Drinks/Week Comments No 0 (1 standard drink = 0.6 oz pur e alcohol) Comments Unknown Sex and Gender Information Value Date Recorded Sex Assigned at Not on file 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 Gender Identity Not on file Sexual Orientation Not on file documented as of this encounter Plan of Treatment Not on file documented as of this encounter Procedures Procedure Name Priority Date/Time Associated Diagnosis Comments DERMATOPATHOLOGY Routine 04/16/2021 12:0 0 AM CDT documented in this encounter Results * DERMATOPATHOLOGY (04/16/2021 12:00 AM CDT) Case Report Dermatopathology Report Case: [id number] Authorizing Provider: Hipolito Coleman MD Collected: 04/16/2021 12:00 AM Ordering Location: [facility] DermPath Lab Received: 04/18/2021 07:53 AM Pathologist: Fabi Krause MD Specimen: Skin, lower back 1:46 PM CDT DERMATOPATHOLOGY LABORATORY Final Diagnosis Specimen A. SKIN, lower back: INTRADERMAL MELANOCYTIC NEVUS (D22.5) 1:46 PM CDT DERMATOPATHOLOGY LABORATORY at 1346 CDT Clinical History MM vs Nevus vs other. Path# [id number] 1:46 PM CDT DERMATOPATHOLOGY LABORATORY Gross Description Specimen A: Received is one formalin filled container labeled with the patient's name and designated lower back. The specimen consists of a shave biopsy measuring [id number]. Jar 0. 1:46 PM CDT DERMATOPATHOLOGY LABORATORY [...] characteristic determined by the Dermatopathology Laboratory at [facility], directed by Dr. Rebeca Dickinson. These tests need not be, and therefore are not, approved by the [place] Food and Drug Administration. The tests are used for clinical purposes. Billing Codes Specimen Charges Stain Charges 08108 1 1:46 PM CDT DERMATOPATHOLOGY LABORATORY Embedded Images 1:46 PM CDT DERMATOPATHOLOGY LABORATORY Pathology/Cytolog y TISSUE SPECIMEN FROM SKIN / Unknown 04/16/2021 04/18/2021 7:53 AM CDT us Hipolito Coleman MD LAB - PATHOLOGY/CYTOLOGY ORDER IRON Final Result DERMATOPATHOLOGY LABORATORY [facility] - Department of Dermatology [address] [phone] documented in this encounter Visit Diagnoses Not on filedocumented in this encounter Care Teams Paralegal Secretary Relationship Specialty Start Date End Date Yesi Khan MD [address] [place] [address] PCP - General 10/15/10 documented as of this encounter
--- OUTSIDE RECORDS SUMMARY | 2025-03-17 06:12 | XMS_ITS | Encounter Summary ---
Author Organization [facility] Address [address] [place] [address] Care Team Providers Care Commercial Relief Driver Name Role Phone Rachid Kirby MD Primary Care Provider [phone] Encounter Details Date Type Department Care Team (Late st Contact Info) Description 05/29/2023 [facility] Patient Accounts [address] [place], [place] [phone] [facility] Action Required Social History Tobacco [...] discharge from hospital Lifestyle No Aaliyah Cabrera, WAREHOUSE ANALYST documented as of this encounter Visit Diagnoses Not on filedocumented in this encounter Care Teams Commercial Relief Driver Relationship Specialty Start Date End Date Rachid Kirby MD [address] [place], [place] [phone] PCP - General FAMILY PRACTICE 05/02/22 documented as of this encounter
--- OUTSIDE RECORDS SUMMARY | 2025-03-17 06:12 | XMS_ITS | Encounter Summary ---
Author Organization [employer] Address 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 [place] [address] PCP - General Family Practice 12/19/16 documented as of this encounter
--- NOTE | 2025-03-17 07:15 | WPDHPUPDATE1 ---
History and Physical Update Update Date/Time: 03/17/25 07:15 History and Physical has been reviewed, including an updated exam of the patient. There are NO changes in the patient's condition. Risks, benefits, and alternatives have been discussed and questions answered. Patient agrees to proceed with procedure.
--- NOTE | 2025-03-17 07:21 | WPDANESEPPF ---
Anes - Initial Pre Proc Eval Procedure: Operation Date: 03/17/25 07:30 Proposed Procedures p Arthrodesis First Metatarsophalangeal Joint Left Foot - Ortega Gloria Jr., DPM Date/Time: 03/17/25 07:21 Surgeon: Ortega Gloria Jr., DPM Pre Op Diagnosis: Arthritis First MPJ Left Foot Patient Data Age: 64 Gender: F Height: 1.63 m Weight: 71.1 kg Last Vital Signs Temp 98.2 F 03/17/25 06:30 Pulse 88 03/17/25 06:30 Resp 18 03/17/25 06:30 BP 152/92 H 03/17/25 06:30 Pulse Ox 95 03/17/25 06:30 O2 Del Method Room Air 03/17/25 06:30 Allergies Allergy/AdvReac Type Severity Reaction Status Date / Time iohexol (From contrast - CT, Allergy Intermediate Hives Verified 03/17/25 06:21 X-RAY) codeine AdvReac Mild Nausea Verified 03/17/25 06:21 Home Medications ?Medication ?Instructions ?Recorded ?Confirmed ?Type paroxetine HCl 25 mg 25 mg PO QAM 03/12/20 03/17/25 History tablet,extended release 24 hr (Paxil CR) aspirin 81 mg tablet,delayed 81 mg PO DAILY 03/29/21 03/17/25 History release (Adult Aspirin Regimen) sumatriptan succinate 100 mg tablet 100 mg PO .COMPLEX PRN migraine 04/12/24 03/17/25 Rx headache #9 tabs potassium citrate 10 mEq (1,080 10 meq PO BID 09/07/24 03/17/25 History mg) tablet,extended release tizanidine 2 mg tablet 2 mg PO TID PRN muscle spasticity 01/11/25 03/17/25 Rx #20 tabs cholecalciferol (vitamin D3) 25 25 mcg PO DAILY 03/09/25 03/17/25 History mcg (1,000 unit) tablet (Vitamin D3) folic acid 1 mg tablet 1 mg PO DAILY 03/09/25 03/17/25 History multivitamin (Daily Multi-Vitamin 1 tablet PO DAILY 03/09/25 03/17/25 History tablet) rosuvastatin 10 mg tablet 10 mg PO DAILY 03/09/25 03/17/25 History pseudoephedrine HCl 120 mg 120 mg PO Q12H PRN nasal 03/13/25 03/17/25 Rx tablet,extended release (Sudafed congestion #14 tabs 12 Hour) oxycodone-acetaminophen 5 mg-325 1 tablet PO Q4H PRN pain #40 tabs 03/14/25 Rx mg tablet (Percocet) rivaroxaban 10 mg tablet (Xarelto) 10 mg PO DAILY #14 tabs 03/14/25 Rx oxycodone-acetaminophen 5 mg-325 1 tablet PO Q6H PRN pain #40 tabs 03/16/25 Rx mg tablet (Percocet) Patient hx anesthesia problems: none Family hx anesthesia problems: none Results Review: All pre-operative results and documents have been reviewed as part of the pre-operative evaluation. [facility] Past Medical History Medical History (Updated 03/16/25 @ 17:10 by Ortega Gloria Jr., DPM) Arthritis of foot, left BMI 26.0-26.9,adult BMI 24.0-24.9, adult Surgical History Surgical History History of kidney removal Family History Family History Father Family history of coronary artery disease Mother Heart disease Sibling Breast cancer Sibling Diabetes mellitus Social History Social History Smoking status: Former smoker Tobacco type: cigarettes Second hand tobacco smoke exposure: Yes Alcohol intake: never Substance use: never Substance use type: does not use Do You Feel Safe in your Home?: Yes Lack of Transportation: No Current Housing: I Have Housing Concerned About Future Housing: No Difficulty Paying Gas/Electric Bills: No Difficulty Paying for Meds: No Currently Unemployed: No Education: High School Diploma/GED Difficulty w/ Childcare or Family Care: No Living arrangements: with family Additional living arrangements comments: and kid Occupation/Education: occupation 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 Gender identity (if verbalized by the patient): Female Sexual Orientation (if Verbalized by the Patient): Straight or Heterosexual Spiritual care concerns: No Agree to blood products: Yes Anes - Eval Final PreProcedure Day of Procedure 03/17/25 07:21 Heart: regular rate and rhythm Lungs: clear to auscultation Airway: Mallampati scale class II Neurological: alert and oriented Last oral intake: >/= 8 hours ASA classification: II Anesthetic plan: proceed Anesthesia type and monitoring: general and monitored anesthesia care Results Review: All pre-operative results and documents have been reviewed as part of the pre-operative evaluation. Informed Consent: The patient's anesthetic plan and its attendant risks and benefits were discussed with the patient/family/POA. Questions were solicited and answers provided to the satisfaction of the patient/family/POA.
[2025-03-17] MEDS: LACTATED RINGERS 1,000 ML 30 ML IV CONT (07:28)
[2025-03-17] MEDS: ceFAZolin SODIUM 2 GM/20 ML SW SYRINGE IV PUSH (07:38)
[2025-03-17] MEDS: BUPivacaine HCL 0.5% 10 ML AMP INFILTRATE (08:11)
[2025-03-17] MEDS: LIDOCAINE 2% PF LOCAL INJ 5 ML VIAL 10 ML INFILTRATE (08:12)
[2025-03-17] MEDS: fentaNYL CITRATE INJ (*CRX) 100 MCG/2 ML VIAL 25 MCG IV PUSH ×2 (09:10→09:13)
--- NOTE | 2025-03-17 09:10 | W.PM.PROC2 ---
Procedure Note - Detailed Date of Procedure 03/17/25 Pre-op Diagnosis Arthritis First Metatarsal Phalangeal Joint Left Foot Post-op Diagnosis Same Procedure Performed Arthrodesis of the first metatarsal phalangeal joint left foot Surgeon Ortega Gloria Jr., [facility] Anesthesia General and Local Indications Painful arthritic left great toe joint Findings Severe loss of cartilage to the first metatarsal phalangeal joint Description of Procedure PROCEDURE IN DETAIL: Under mild sedation, the patient was brought into the operating room, placed on the operating table in supine position. A pneumatic ankle tourniquet was placed about the patient's ipsilateral ankle. Following general anesthesia and a Cho Block with 20ccs of 2% Lidocaine plain and 0.5% Marcaine plain, the foot was then scrubbed, prepped, and draped in the usual aseptic manner. An Esmarch bandage was then used to exsanguinate the patient's foot and the pneumatic ankle tourniquet was then inflated. Surgery began in the following manner: Attention was directed to the dorsal medial aspect of the 1st metatarsophalangeal joint where there was a moderate subcutaneous prominence was noted. The incision was made starting along the central shaft of the 1st metatarsal and extending just proximal to the interphalangeal joint of the hallux. The incision was continued deep down through the subcutaneous tissues using sharp and blunt dissection. All bleeders were cauterized as necessary. At this point, the dissection was continued down to the level of the periosteum and capsular structures overlying the 1st metatarsophalangeal joint. A full length periosteum and capsular incision was made just medial to the extensor hallucis longus tendon. The periosteum and capsular structures were freed from the base of the proximal phalanx as well as the distal 1st metatarsal. At this point, the 1st metatarsophalangeal joint was identified. There was loss of articular cartilage to the head of the 1st metatarsal as well as the base of the proximal phalanx worse centrally and medially. There was significant broadening and hypertrophy of the 1st metatarsophalangeal joint. Utilizing a sagittal bone saw, the hypertrophied 1st metatarsal was resected dorsally, medially, and laterally. A power bur was used to make sure that there were no rough edges and also to further debride the hypertrophic 1st metatarsal. Next, a rongeur was used to resect the hypertrophic base of the proximal phalanx. At this point, the reamer system for the Maxforce plate system was used to denude the degenerative cartilage from the head of the 1st metatarsal as well as the base of the proximal phalanx. The cartilage and subchondral bone were fully debrided utilizing the reamer system until healthy bleeding bone was noted. Next, a 2-0 drill bit was used to further fenestrate the head of the 1st metatarsal as well as the base of the proximal phalanx in order to allow fusion across the 1st metatarsophalangeal joint. Next, a guide wire for a 3.0 headless Arthrex compression screw was driven from the medial aspect of the base of the proximal phalanx into the head of the 1st metatarsal in order to serve as temporary fixation, next the cannulated screw was driven and provided excellent compression. Next A large steel plate was used to make sure that the hallux was in a rectus position both in the sagittal plane as well as the frontal plane. Excellent position of the hallux was noted. Next, a Maxforce plate was placed atop the 1st metatarsophalangeal joint held in position with [place] wires. Utilizing standard principles and techniques, the distal drill holes were drilled and three 3.0 mm fully-threaded locking screws were driven from dorsal to plantar holding the distal aspect of the plate intact. At this point, the Maxforce compression system was utilized from dorsal distal to proximal plantar across the 1st metatarsophalangeal joint with excellent compression noted. Next, a 3.0mm locking screw was used to further compress the joint along the oblong dynamic compression screw slot. Next, the remaining 2 proximal drill holes were drilled from dorsal to plantar across and two 3.0 mm locking screws were driven from dorsal to plantar. The wound site was then flushed with copious amounts of sterile saline. Fluoroscopy was used to make sure that the plate was appropriately aligned and oriented and also to make sure that the screws were of appropriate length and orientation. Excellent position of the 1st metatarsophalangeal joint was visualized in all planes. Next, the periosteum and capsular structures were reapproximated with 3-0 Vicryl. Next, the subcutaneous structures were reapproximated with 4-0 Vicryl. Next, the skin was reapproximated and coapted utilizing 4-0 Monocryl in running subcuticular suture fashion technique. Upon completion of the procedure, the incision was dressed with Steri-Strips, Adaptic, 4x4s, Kerlix, and Coban. The pneumatic ankle tourniquet was then deflated and a prompt hyperemic response was noted to all digits of the foot. A posterior splint was then applied to the affected lower extremity. It is important to note that Dr. Gloria was present throughout the procedure. The patient did very well with the procedure and the anesthesia. The patient was transferred to the recovery room with vital signs stable and vascular status intact to all toes of the foot. Following a period of postoperative monitoring, the patient will be discharged home on the following written and oral postoperative instructions: 1. Keep the dressing clean, dry, and intact. 2. The patient to be strictly nonweightbearing with a knee scooter or crutches. 3. The patient should ice and elevate the foot when at rest. 4. The patient should contact Dr. Gloria for all postop care and if any problems should arise. 5. Prescriptions were written for Percocet 5/325, dispensed 40 to be taken 1 p.o. q.4-6 hours as needed for severe pain. Furthermore, the patient should also take Xarelto 10 mg to be taken 1 p.o. daily starting 24 hours after surgery to prevent DVT for 14 days followed by one 325 mg aspirin until walking is re-initiated. Implants Arthrex Maxforce Plate with five 3.0mm Locking Screws and One Kreulock Screws Arthrex 3.5 Headless Screw Estimated Blood Loss 1 Drains No Packing No Pathology None sent Complications No immediate complications Condition Stable Disposition Same day
== END 2025-03-17 10:26 | disposition home or self-care (01) ==
PROVIDERS: PCP Family Medicine; Visit Provider Podiatrist Foot & Ankle Surgery
PROC: (CPT 28750; principal; 2025-03-17 07:30)
DX: M19.072 Primary osteoarthritis, left ankle and foot (principal)
CPT/HCPCS: 28750; 99199